=== PATIENT | male | born 1950 | race Caucasian/White ===

== ENCOUNTER 2018-06-04 12:28 | Inpatient (IN) ==
[2018-06-04] MEDS ORDERED: Lidocaine OINT 35.44 GM TUBE TP PRN (16:14)
[2018-06-04] MEDS: Budesonide/Formoterol 80/4.5 MDI IH SCH (21:58)
[2018-06-05] MEDS: Baclofen 10 MG TABLET PO SCH ×4 (00:08→20:54)
[2018-06-05] MEDS: Gabapentin 400 MG CAPSULE PO SCH ×4 (00:08→20:53)
[2018-06-05] MEDS: Metoprolol XL (24 HR) Succ 25 MG TAB.ER.24H PO SCH ×3 (00:08→20:54)
[2018-06-05] MEDS: Thiamine (B-1) 100 MG TABLET PO SCH ×2 (00:11→08:58)
[2018-06-05] MEDS: Acetaminophen 325 MG TABLET PO PRN (08:53)
[2018-06-05] MEDS: Venlafaxine XR (24 HR) 150 MG CAP.ER.24H PO SCH (08:54)
[2018-06-05] MEDS: Aspirin 81 MG TAB.CHEW PO SCH (08:54)
[2018-06-05] MEDS: Cholecalciferol (D-3) 1,000 UNIT TABLET PO SCH (08:55)
[2018-06-05] MEDS: Folic Acid 1 MG TABLET PO SCH (08:55)
[2018-06-05] MEDS: *HR* Rivaroxaban 10 MG TABLET PO SCH (08:55)
[2018-06-05] MEDS: Nicotine 14 MG PATCH.TD24 TD SCH (08:58)
[2018-06-05] MEDS: Budesonide/Formoterol 80/4.5 MDI IH SCH ×2 (10:34→21:29)
--- NOTE | 2018-06-05 12:51 | Internal Med History&Physical ---
Date of Encounter: 06/05/18 Time of Encounter: 11:35 Assessment and Plan (1) CVA (cerebral vascular accident) Current visit: No Status: Acute Continue Xarelto and aspirin. PT and OT evaluation with ongoing intervention will be done. Qualifiers: CVA mechanism: unspecified Qualified Code(s): I63.9 - Cerebral infarction, unspecified (2) Spinal stenosis of lumbar region Current visit: Yes Status: Chronic I have spoken with staff at [facility]. EMG/NCS will be done tomorrow. Repeat LS spine MRI will be ordered Qualifiers: Neurogenic claudication status: unspecified Qualified Code(s): M48.061 - Spinal stenosis, lumbar region without neurogenic claudication (3) HTN (hypertension) Current visit: No Status: Chronic Continue Toprol. Qualifiers: Hypertension type: essential hypertension Qualified Code(s): I10 - Essential (primary) hypertension (4) Anemia Current visit: No Status: Acute Anemia testing will be done in a.m. Qualifiers: Anemia type: unspecified type Qualified Code(s): D64.9 - Anemia, unspecified (5) VTE (venous thromboembolism) Current visit: No Status: Chronic Continue Xarelto. (6) COPD (chronic obstructive pulmonary disease) Current visit: No Status: Chronic Continue Symbicort and prn albuterol. Qualifiers: COPD type: unspecified COPD Qualified Code(s): J44.9 - Chronic obstructive pulmonary disease, unspecified (7) Multiple falls Current visit: No Status: Acute PT and OT evaluations with ongoing intervention will be done. Internal Medicine - H&P: HPI Chief complaint: Stroke Admitted From: Hospital to Hospital Transfer Plans for Post Hospital Care: Home History of present illness: Mr. Morejon is a 68 year old male who was transferred to [facility] swing bed after hospitalization at [facility] May 30-. He was found to have CVA in the left frontal area which appeared to be acute on chronic CVA on brain MRI. He was discharged to swing bed for rehabilitation therapy prior to attempting returned to independent living. He was unaware he had sustained previous CVA. He admits he does not remember many things. He denies seizures or other neurologic disorders. He states he has not been able to walk more than a few steps for approximately one year due to weakness in his legs. Past Med Surg Social Fam HX - Past Medical History Medical history: arthritis, cancer, DVT, hyperlipidemia, hypertension, other Additional medical history: prostrate CA, radioactive seed implants Psychiatric history: no psych history - Past Surgical History Surgical History: other Additional surgical history: Radiation seeds, rt shoulder surgery, R/L hip - Social History Smoking Status: Current every day smoker Packs per day: 1 Smokeless Tobacco Status: No Alcohol use: heavy, recent Drug use: marijuana - Family History Mother Living Status: Hx Family Cardiac Disorders: Yes Hx Family Respiratory Disorders: Yes Hx Family Cancer: Yes (Lung CA) Hx Family GI Disorders: No Hx Family Endocrine Disorder: Yes (DM) Hx Family Neuromuscular Disorders: No Hx Family Neurologic Disorders: Yes (cervical spinal stenosis) Hx Family HEENT Disorders: No Hx Family Autoimmune Disorders: No Father Living Status: Hx Family Cancer: Yes (prostate) Internal Medicine - H&P: Meds Acetaminophen [Tylenol] 650 mg PO Q6HR PRN 08/13/15 [History] Cholecalciferol (D-3) [Vitamin D] 2,000 unit PO DAILY 08/13/15 [History] Gabapentin [Neurontin] 1,200 mg PO TID 08/13/15 [History] Omeprazole [PriLOSEC] 20 mg PO DAILY 08/13/15 [History] Venlafaxine XR (24 HR) [Effexor Xr] 150 mg PO DAILY 08/13/15 [History] Folic Acid 1 mg PO DAILY 02/04/18 [History] Tamsulosin [Flomax] 0.4 mg PO HS 02/04/18 [History] hydrOXYzine HCl [Hydroxyzine HCl] 50 mg PO HS PRN 02/04/18 [History] Metoprolol Succinate [Toprol Xl] 25 mg PO BID 04/07/18 [History] Potassium Chloride [Klor-Con 10] 10 meq PO DAILY 04/07/18 [History] Thiamine HCl [Vitamin B-1] 100 mg PO BID 04/07/18 [History] Lidocaine 1 appl TP QID PRN 04/29/18 [History] Naproxen [Naprosyn] 500 mg PO BID PRN 04/29/18 [History] Rivaroxaban [Xarelto] 20 mg PO DAILY 04/29/18 [History] Budesonide/Formoterol 80/4.5 [Symbicort 80/4.5] 2 puff IH BIDR #1 inhaler 04/30/18 [Rx] Nicotine Patch [Nicoderm] 14 mg TD DAILY #30 patch.td24 04/30/18 [Rx] Albuterol Sulfate [Albuterol Inhaler] 2 puff IH QID PRN 05/30/18 [History] Baclofen 20 mg PO TID 05/30/18 [History] Aspirin 81 mg PO DAILY #30 tab.chew 06/03/18 [Rx] Atorvastatin [Lipitor] 80 mg PO HS #30 tablet 06/03/18 [Rx] Allergy/AdvReac Type Severity Reaction Status Date / Time No Known Allergies Allergy Verified 06/04/18 23:03 All Systems PM: A 10-system review of systems was performed and is negative for pertinent findings except as documented above in the HPI. Review of systems: Gen.: His weight has decreased from 79.7 kg on 05/23/2016 to present weight of 68.045 kg. He states this was unintentional. Cardiovascular: He has history of hypertension. He reports unprovoked right leg DVT in 2018. He is presently on Xarelto. Aspirin was started during his recent [facility] stay for CVA. Echocardiogram 05/30/2018 showed LVEF of 60%. The E/A ratio was 1.3. There was mild mitral regurgitation and moderate tricuspid regurgitation. The interventricular septum and posterior wall thickness measurements were 0.73 and 0.70 cm respectively. Estimated RVSP was not recorded. There is no history of AL. Respiratory: He has smoked since age 16 up to 2 packs per day. He has oxygen at home which he uses only when he feels dyspneic. He denies testing for sleep apnea. GI: He reports occasional diarrhea that has not worsened in the past few months. He states he had a "partial colonoscopy" in 2018 with no worrisome pathology found. He does not recall EGD being done. He denies disorders of his liver gallbladder or exocrine pancreas : He reports being diagnosed with prostate CA 2013 and had brachytherapy. He denies other disorders of his kidney bladder or prostate Neurologic: As per history of present illness Endocrine: He claims history of hyperlipidemia but denies diabetes or thyroid disease Hematology/oncology: He was unaware he had anemia on most labs since August 2015. He denies other internal malignancies other than prostate CA as per above Psychiatric: He denies anxiety depression or other mental health issues [place] skeletal: He had severe multilevel DJD of the lumbar spine with multilevel spinal canal stenosis and bilateral neural foraminal narrowing on LS spine MRI April 2016. He was seen by Dr. Fermin at [facility] and EMG was ordered. The patient canceled the EMG appointment and did not follow-up with Dr. Fermin. He reports ability to ambulate has significantly decreased in the last year. - Constitutional Vitals: Temp Pulse Resp BP Pulse Ox 98.8 F 88 14 136/70 96 06/05/18 06:46 06/05/18 06:46 06/05/18 10:34 06/05/18 06:46 06/05/18 10:34 Exam: Gen.: He is a well-developed well-nourished male resting comfortably in bed who appears in no acute distress HEENT: Head is atraumatic and normocephalic. Eyes: EOMI. There is no scleral icterus. Mouth: Mucosa is moist. Neck: Supple and nontender. There is no thyromegaly or adenopathy noted. Heart: Regular without murmurs gallops or ectopics Lungs: No wheezes or crackles are heard. Abdomen: Soft and nontender. No masses or guarding are noted. Extremities: There is no cyanosis edema or clubbing noted. Dorsalis pedis and posterior tibial pulses are trace palpable bilaterally. Neurologic: Mental status: He is talkative and a good historian. Cranial nerves: Smile is symmetric. Forehead wrinkles bilaterally. Tongue protrudes midline. EOMI. Motor: There is no pronator drift. He has slight weakness on attempting to dorsiflex the left ankle against resistance. The right ankle has normal strength. Cerebellar: Finger to nose is intact bilaterally. Skin: Warm and dry
[2018-06-05] MEDS: hydrOXYzine pamoate 25 MG CAPSULE PO PRN (21:25)
[2018-06-06 06:23] LABS: Basophils # 0.1 K/mcL (0.0-0.2); Basophils % 0.7 %; Eosinophils # 0.6 K/mcL (0.0-0.6); Eosinophils % 4.9 %; Hematocrit 40.1 % (37.5-50.1); Hemoglobin 12.1 g/dL (12.9-16.9); Immature Granulocytes % 1.3 % (0-4); Lymphocytes # 2.2 K/mcL (0.6-4.6); Lymphocytes % 19.3 %; Mean Corpuscular HGB Conc 30.2 g/dL (31.6-35.5); Mean Corpuscular Hemoglobin 27.4 pg (28.0-33.3); Mean Corpuscular Volume 90.7 fL (83.0-100.0); Mean Platelet Volume 9.3 fL (9.4-12.4); Monocytes # 0.7 K/mcL (0.0-1.3); Monocytes % 6.4 %; Neutrophils # 7.8 K/mcL (1.6-8.9); Platelet Count 451 K/mcL (140-400); Red Blood Count 4.42 M/mcL (4.19-5.50); Red Cell Distribution Width 14.3 % (11.5-14.5); Segmented Neutrophils % 67.4 %
[2018-06-06 08:50] LABS: % Iron Saturation 5 % (20-55); Iron 23 mcg/dL (65-175); Transferrin 328 mg/dL (203-362)
[2018-06-06 09:08] LABS: Ferritin 33 ng/mL (20-250)
[2018-06-06 09:13] LABS: Folate 10.7 ng/mL (3.0-16.0)
[2018-06-06] MEDS: Budesonide/Formoterol 80/4.5 MDI IH SCH ×2 (10:15→21:22)
[2018-06-06] MEDS: Metoprolol XL (24 HR) Succ 25 MG TAB.ER.24H PO SCH ×2 (11:13→20:54)
[2018-06-06] MEDS: Folic Acid 1 MG TABLET PO SCH (11:13)
[2018-06-06] MEDS: Aspirin 81 MG TAB.CHEW PO SCH (11:13)
[2018-06-06] MEDS: Cholecalciferol (D-3) 1,000 UNIT TABLET PO SCH (11:13)
[2018-06-06] MEDS: Acetaminophen 325 MG TABLET PO PRN (11:13)
[2018-06-06] MEDS: Venlafaxine XR (24 HR) 150 MG CAP.ER.24H PO SCH (11:13)
[2018-06-06] MEDS: *HR* Rivaroxaban 10 MG TABLET PO SCH (11:13)
[2018-06-06] MEDS: Baclofen 10 MG TABLET PO SCH ×3 (11:13→20:53)
[2018-06-06] MEDS: Nicotine 14 MG PATCH.TD24 TD SCH (11:14)
[2018-06-06] MEDS: Gabapentin 400 MG CAPSULE PO SCH ×3 (11:14→20:54)
--- NOTE | 2018-06-06 17:44 | Internal Med Progress Note ---
Date of Encounter: 06/06/18 Time of Encounter: 17:35 - Assessment and plan (1) CVA (cerebral vascular accident) Current Visit: No Status: Acute Assessment and plan: June 06. Continue Xarelto, aspirin, and PT/OT intervention. Qualifiers: CVA mechanism: unspecified Qualified Code(s): I63.9 - Cerebral infarction, unspecified (2) Spinal stenosis of lumbar region Current Visit: Yes Status: Chronic Assessment and plan: June 06. MRI of LS spine shows diffuse congenital spinal canal stenosis and superimposed degenerative changes with multilevel neural foraminal stenosis and disc bulging. He has a follow-up appointment with Dr. Calvin 06/13/2018 at 0930. EMG/NCS was done today with report pending. Qualifiers: Neurogenic claudication status: unspecified Qualified Code(s): M48.061 - Spinal stenosis, lumbar region without neurogenic claudication (3) HTN (hypertension) Current Visit: No Status: Chronic Assessment and plan: June 06. Continue Toprol. Qualifiers: Hypertension type: essential hypertension Qualified Code(s): I10 - Essential (primary) hypertension (4) Anemia Current Visit: No Status: Acute Assessment and plan: June 06. Anemia testing showed iron 23, transferrin saturation 5%, transferrin 3 and 28, ferritin 33, B12 2066, and folate 10.7. He will start oral ferrous sulfate with ascorbic acid in a.m. MMA will be checked to further evaluate his B12 status. Qualifiers: Anemia type: unspecified type Qualified Code(s): D64.9 - Anemia, unspecified (5) VTE (venous thromboembolism) Current Visit: No Status: Chronic Assessment and plan: June 06. Continue Xarelto (6) COPD (chronic obstructive pulmonary disease) Current Visit: No Status: Chronic Assessment and plan: June 06. Continue Symbicort and prn albuterol. Qualifiers: COPD type: unspecified COPD Qualified Code(s): J44.9 - Chronic obstructive pulmonary disease, unspecified (7) Multiple falls Current Visit: No Status: Acute Assessment and plan: June 06. Continue PT/OT intervention (8) Lung nodule Current Visit: No Status: Acute Assessment and plan: June 06. Chest CT showed left lower lobe nodule measuring approximately 1.5 x 1.38 cm. PET scan recommended for further follow-up. - Subjective Interval history: June 06. He has no new complaints. - Constitutional Vitals: Temp Pulse Resp BP Pulse Ox 98.4 F 90 21 103/71 94 06/06/18 07:02 06/06/18 07:02 06/06/18 07:02 06/06/18 07:02 06/06/18 07:02 Exam: He is resting comfortably in bed and appears in no acute distress. His affect is bright and cheerful. I reviewed his medications, lab results, CT and MRI report. Internal Medicine: Result - Labs CBC & Chem 7: 06/06/18 05:51 Labs: Short CBC 06/06/18 Range/Units 05:51 WBC 11.6 H (4.3-11.1) K/mcL Hgb 12.1 L D (12.9-16.9) g/dL Hct 40.1 (37.5-50.1) % Plt Count 451 H (140-400) K/mcL Neutrophils # 7.8 (1.6-8.9) K/mcL - Impressions Impressions Lumbar Spine MRI 06/05/18 14:47 IMPRESSION: 1. Diffuse congenital spinal canal stenosis. Superimposed degenerative changes further narrow the spinal canal, including severe L3-L4 spinal canal stenosis. Additional multilevel mild spinal canal stenosis, as detailed above. 2. Severe left T11-T12, right L2-L3, right L3-L4, right L4-L5, and left L5-S1 neural foraminal stenosis. 3. Moderate left T12-L1, [id number] left L4-L5, and moderate right L5-S1 neural foraminal stenosis. D/ / 06/05/2018 16:06:22 Nils Crooks MD / [email or web address] Interpreting Provider: Nils Crooks MD Consult Discharge Plan - Plan [facility]Primary Care Provider[facility] - 1 week
[2018-06-06] MEDS: hydrOXYzine pamoate 25 MG CAPSULE PO PRN (20:53)
[2018-06-07] MEDS: Ascorbic Acid 500 MG TABLET PO SCH (06:51)
[2018-06-07] MEDS: Nicotine 14 MG PATCH.TD24 TD SCH (08:32)
[2018-06-07] MEDS: Baclofen 10 MG TABLET PO SCH ×3 (08:32→20:53)
[2018-06-07] MEDS: Cholecalciferol (D-3) 1,000 UNIT TABLET PO SCH (08:34)
[2018-06-07] MEDS: *HR* Rivaroxaban 10 MG TABLET PO SCH (08:34)
[2018-06-07] MEDS: Metoprolol XL (24 HR) Succ 25 MG TAB.ER.24H PO SCH ×2 (08:34→20:53)
[2018-06-07] MEDS: Venlafaxine XR (24 HR) 150 MG CAP.ER.24H PO SCH (08:34)
[2018-06-07] MEDS: Aspirin 81 MG TAB.CHEW PO SCH (08:34)
[2018-06-07] MEDS: Gabapentin 400 MG CAPSULE PO SCH ×3 (08:34→20:53)
[2018-06-07] MEDS: Folic Acid 1 MG TABLET PO SCH (08:34)
[2018-06-07] MEDS: Budesonide/Formoterol 80/4.5 MDI IH SCH ×2 (10:53→22:01)
--- NOTE | 2018-06-07 16:37 | Internal Med Progress Note ---
Date of Encounter: 06/07/18 Time of Encounter: 16:30 - Assessment and plan (1) CVA (cerebral vascular accident) Current Visit: No Status: Acute Assessment and plan: June 06. Continue Xarelto, aspirin, and PT/OT intervention. Qualifiers: CVA mechanism: unspecified Qualified Code(s): I63.9 - Cerebral infarction, unspecified (2) Spinal stenosis of lumbar region Current Visit: Yes Status: Chronic Assessment and plan: June 06. MRI of LS spine shows diffuse congenital spinal canal stenosis and superimposed degenerative changes with multilevel neural foraminal stenosis and disc bulging. He has a follow-up appointment with Dr. Calvin 06/13/2018 at 0930. EMG/NCS was done today with report pending. Qualifiers: Neurogenic claudication status: unspecified Qualified Code(s): M48.061 - Spinal stenosis, lumbar region without neurogenic claudication (3) HTN (hypertension) Current Visit: No Status: Chronic Assessment and plan: June 06. Continue Toprol. Qualifiers: Hypertension type: essential hypertension Qualified Code(s): I10 - Essential (primary) hypertension (4) Anemia Current Visit: No Status: Acute Assessment and plan: June 06. Anemia testing showed iron 23, transferrin saturation 5%, transferrin 3 and 28, ferritin 33, B12 266, and folate 10.7. He will start oral ferrous sulfate with ascorbic acid in a.m. MMA will be checked to further evaluate his B12 status. June 07. MMA pending. Continue ferrous sulfate with ascorbic acid. Qualifiers: Anemia type: unspecified type Qualified Code(s): D64.9 - Anemia, unspecified (5) VTE (venous thromboembolism) Current Visit: No Status: Chronic Assessment and plan: June 06. Continue Xarelto (6) COPD (chronic obstructive pulmonary disease) Current Visit: No Status: Chronic Assessment and plan: June 06. Continue Symbicort and prn albuterol. Qualifiers: COPD type: unspecified COPD Qualified Code(s): J44.9 - Chronic obstructive pulmonary disease, unspecified (7) Multiple falls Current Visit: No Status: Acute Assessment and plan: June 06. Continue PT/OT intervention (8) Lung nodule Current Visit: No Status: Acute Assessment and plan: June 06. Chest CT showed left lower lobe nodule measuring approximately 1.5 x 1.38 cm. PET scan recommended for further follow-up. June 07. PET scan ordered. - Subjective Interval history: June 06. He has no new complaints. June 07. He has no new complaints. He states his walking distance has significantly increased. - Constitutional Vitals: Temp Pulse Resp BP Pulse Ox 98.1 F 81 16 131/74 94 06/07/18 06:29 06/07/18 06:29 06/07/18 10:53 06/07/18 06:06/07/18 10:53 Exam: He is resting comfortably in bed and appears in no acute distress. His affect is bright and cheerful. I reviewed his medications and lab results. Internal Medicine: Result - Labs CBC & Chem 7: 06/06/18 05:51 Consult Discharge Plan - Plan [facility]errals: [facility] [Primary Care Provider[facility] - 1 week
[2018-06-07] MEDS: hydrOXYzine pamoate 25 MG CAPSULE PO PRN (20:52)
[2018-06-08] MEDS: Ascorbic Acid 500 MG TABLET PO SCH (07:24)
[2018-06-08] MEDS: Budesonide/Formoterol 80/4.5 MDI IH SCH ×2 (09:40→23:01)
[2018-06-08] MEDS: Nicotine 14 MG PATCH.TD24 TD SCH (10:16)
[2018-06-08] MEDS: Aspirin 81 MG TAB.CHEW PO SCH (10:18)
[2018-06-08] MEDS: Cholecalciferol (D-3) 1,000 UNIT TABLET PO SCH (10:18)
[2018-06-08] MEDS: Gabapentin 400 MG CAPSULE PO SCH ×3 (10:18→20:04)
[2018-06-08] MEDS: *HR* Rivaroxaban 10 MG TABLET PO SCH (10:18)
[2018-06-08] MEDS: Baclofen 10 MG TABLET PO SCH ×3 (10:18→20:04)
[2018-06-08] MEDS: Metoprolol XL (24 HR) Succ 25 MG TAB.ER.24H PO SCH ×2 (10:18→20:04)
[2018-06-08] MEDS: Folic Acid 1 MG TABLET PO SCH (10:19)
[2018-06-08] MEDS: Venlafaxine XR (24 HR) 150 MG CAP.ER.24H PO SCH (10:19)
[2018-06-09] MEDS: Ascorbic Acid 500 MG TABLET PO SCH (06:16)
[2018-06-09] MEDS: Nicotine 14 MG PATCH.TD24 TD SCH (09:03)
[2018-06-09] MEDS: *HR* Rivaroxaban 10 MG TABLET PO SCH (09:05)
[2018-06-09] MEDS: Gabapentin 400 MG CAPSULE PO SCH ×3 (09:05→20:16)
[2018-06-09] MEDS: Venlafaxine XR (24 HR) 150 MG CAP.ER.24H PO SCH (09:05)
[2018-06-09] MEDS: Cholecalciferol (D-3) 1,000 UNIT TABLET PO SCH (09:05)
[2018-06-09] MEDS: Baclofen 10 MG TABLET PO SCH ×3 (09:05→20:16)
[2018-06-09] MEDS: Metoprolol XL (24 HR) Succ 25 MG TAB.ER.24H PO SCH ×2 (09:05→20:15)
[2018-06-09] MEDS: Folic Acid 1 MG TABLET PO SCH (09:05)
[2018-06-09] MEDS: Aspirin 81 MG TAB.CHEW PO SCH (09:05)
[2018-06-09] MEDS: Budesonide/Formoterol 80/4.5 MDI IH SCH ×2 (10:07→21:53)
--- NOTE | 2018-06-09 14:46 | Internal Med Progress Note ---
Date of Encounter: 06/09/18 Time of Encounter: 14:35 - Assessment and plan (1) CVA (cerebral vascular accident) Current Visit: No Status: Acute Assessment and plan: June 06. Continue Xarelto, aspirin, and PT/OT intervention. Qualifiers: CVA mechanism: unspecified Qualified Code(s): I63.9 - Cerebral infarction, unspecified (2) Spinal stenosis of lumbar region Current Visit: Yes Status: Chronic Assessment and plan: June 06. MRI of LS spine shows diffuse congenital spinal canal stenosis and superimposed degenerative changes with multilevel neural foraminal stenosis and disc bulging. He has a follow-up appointment with Dr. Calvin 06/13/2018 at 0930. EMG/NCS was done today with report pending. Qualifiers: Neurogenic claudication status: unspecified Qualified Code(s): M48.061 - Spinal stenosis, lumbar region without neurogenic claudication (3) HTN (hypertension) Current Visit: No Status: Chronic Assessment and plan: June 06. Continue Toprol. Qualifiers: Hypertension type: essential hypertension Qualified Code(s): I10 - Essential (primary) hypertension (4) Anemia Current Visit: No Status: Acute Assessment and plan: June 06. Anemia testing showed iron 23, transferrin saturation 5%, transferrin 3 and 28, ferritin 33, B12 266, and folate 10.7. He will start oral ferrous sulfate with ascorbic acid in a.m. MMA will be checked to further evaluate his B12 status. June 07. MMA pending. Continue ferrous sulfate with ascorbic acid. Qualifiers: Anemia type: unspecified type Qualified Code(s): D64.9 - Anemia, unspecified (5) VTE (venous thromboembolism) Current Visit: No Status: Chronic Assessment and plan: June 06. Continue Xarelto (6) COPD (chronic obstructive pulmonary disease) Current Visit: No Status: Chronic Assessment and plan: June 06. Continue Symbicort and prn albuterol. Qualifiers: COPD type: unspecified COPD Qualified Code(s): J44.9 - Chronic obstructive pulmonary disease, unspecified (7) Multiple falls Current Visit: No Status: Acute Assessment and plan: June 06. Continue PT/OT intervention (8) Lung nodule Current Visit: No Status: Acute Assessment and plan: June 06. Chest CT showed left lower lobe nodule measuring approximately 1.5 x 1.38 cm. PET scan recommended for further follow-up. June 07. PET scan ordered. - Subjective Interval history: June 06. He has no new complaints. June 07. He has no new complaints. He states his walking distance has significantly increased. June 09. He has no new complaints. He denies pain or dyspnea. - Constitutional Vitals: Temp Pulse Resp BP Pulse Ox 98.4 F 96 14 111/74 93 06/09/18 07:04 06/09/18 07:04 06/09/18 10:07 06/09/18 07:04 06/09/18 10:07 Exam: He is resting comfortably in bed and appears in no acute distress. His affect is overall cheerful. I reviewed his medications and lab results. Internal Medicine: Result - Labs CBC & Chem 7: 06/06/18 05:51 Consult Discharge Plan - Plan [facility]errals: [facility] [Primary Care Provider[facility] - 1 week
[2018-06-10] MEDS: Ascorbic Acid 500 MG TABLET PO SCH (05:52)
[2018-06-10] MEDS: Acetaminophen 325 MG TABLET PO PRN (08:24)
[2018-06-10] MEDS: Nicotine 14 MG PATCH.TD24 TD SCH (08:24)
[2018-06-10] MEDS: Cholecalciferol (D-3) 1,000 UNIT TABLET PO SCH (08:24)
[2018-06-10] MEDS: Venlafaxine XR (24 HR) 150 MG CAP.ER.24H PO SCH (08:25)
[2018-06-10] MEDS: Metoprolol XL (24 HR) Succ 25 MG TAB.ER.24H PO SCH ×2 (08:25→21:00)
[2018-06-10] MEDS: *HR* Rivaroxaban 10 MG TABLET PO SCH (08:25)
[2018-06-10] MEDS: Folic Acid 1 MG TABLET PO SCH (08:25)
[2018-06-10] MEDS: Gabapentin 400 MG CAPSULE PO SCH ×3 (08:25→20:59)
[2018-06-10] MEDS: Baclofen 10 MG TABLET PO SCH ×3 (08:25→20:59)
[2018-06-10] MEDS: Aspirin 81 MG TAB.CHEW PO SCH (08:25)
[2018-06-10] MEDS: Budesonide/Formoterol 80/4.5 MDI IH SCH ×2 (10:42→22:41)
[2018-06-10] MEDS: hydrOXYzine pamoate 25 MG CAPSULE PO PRN (21:00)
[2018-06-11] MEDS: Ascorbic Acid 500 MG TABLET PO SCH (06:44)
[2018-06-11] MEDS: *HR* Rivaroxaban 10 MG TABLET PO SCH (08:47)
[2018-06-11] MEDS: Cholecalciferol (D-3) 1,000 UNIT TABLET PO SCH (08:47)
[2018-06-11] MEDS: Gabapentin 400 MG CAPSULE PO SCH ×3 (08:48→20:06)
[2018-06-11] MEDS: Folic Acid 1 MG TABLET PO SCH (08:48)
[2018-06-11] MEDS: Baclofen 10 MG TABLET PO SCH ×3 (08:48→20:06)
[2018-06-11] MEDS: Metoprolol XL (24 HR) Succ 25 MG TAB.ER.24H PO SCH ×2 (08:48→20:06)
[2018-06-11] MEDS: Venlafaxine XR (24 HR) 150 MG CAP.ER.24H PO SCH (08:48)
[2018-06-11] MEDS: Nicotine 14 MG PATCH.TD24 TD SCH (08:48)
[2018-06-11] MEDS: Aspirin 81 MG TAB.CHEW PO SCH (08:48)
[2018-06-11] MEDS: Budesonide/Formoterol 80/4.5 MDI IH SCH ×2 (10:34→22:20)
[2018-06-12] MEDS: Ascorbic Acid 500 MG TABLET PO SCH (06:06)
[2018-06-12] MEDS: Budesonide/Formoterol 80/4.5 MDI IH SCH ×2 (10:16→22:09)
[2018-06-12] MEDS: Folic Acid 1 MG TABLET PO SCH (10:43)
[2018-06-12] MEDS: Baclofen 10 MG TABLET PO SCH ×3 (10:43→20:07)
[2018-06-12] MEDS: Cholecalciferol (D-3) 1,000 UNIT TABLET PO SCH (10:43)
[2018-06-12] MEDS: Nicotine 14 MG PATCH.TD24 TD SCH (10:43)
[2018-06-12] MEDS: Aspirin 81 MG TAB.CHEW PO SCH (10:44)
[2018-06-12] MEDS: Gabapentin 400 MG CAPSULE PO SCH ×3 (10:44→20:07)
[2018-06-12] MEDS: Venlafaxine XR (24 HR) 150 MG CAP.ER.24H PO SCH (10:44)
[2018-06-12] MEDS: *HR* Rivaroxaban 10 MG TABLET PO SCH (10:44)
[2018-06-12] MEDS: Metoprolol XL (24 HR) Succ 25 MG TAB.ER.24H PO SCH ×2 (12:34→20:07)
--- NOTE | 2018-06-12 12:47 | Internal Med Progress Note ---
Date of Encounter: 06/12/18 Time of Encounter: 12:38 - Assessment and plan (1) CVA (cerebral vascular accident) Current Visit: No Status: Acute Assessment and plan: June 06. Continue Xarelto, aspirin, and PT/OT intervention. June 12. Continue present Rx. Recheck labs in a.m. Qualifiers: CVA mechanism: unspecified Qualified Code(s): I63.9 - Cerebral infarction, unspecified (2) Spinal stenosis of lumbar region Current Visit: Yes Status: Chronic Assessment and plan: June 06. MRI of LS spine shows diffuse congenital spinal canal stenosis and superimposed degenerative changes with multilevel neural foraminal stenosis and disc bulging. He has a follow-up appointment with Dr. Calvin 06/13/2018 at 0930. EMG/NCS was done today with report pending. Qualifiers: Neurogenic claudication status: unspecified Qualified Code(s): M48.061 - Spinal stenosis, lumbar region without neurogenic claudication (3) HTN (hypertension) Current Visit: No Status: Chronic Assessment and plan: June 06. Continue Toprol. Qualifiers: Hypertension type: essential hypertension Qualified Code(s): I10 - Essential (primary) hypertension (4) Anemia Current Visit: No Status: Acute Assessment and plan: June 06. Anemia testing showed iron 23, transferrin saturation 5%, transferrin 3 and 28, ferritin 33, B12 266, and folate 10.7. He will start oral ferrous sulfate with ascorbic acid in a.m. MMA will be checked to further evaluate his B12 status. June 07. MMA pending. Continue ferrous sulfate with ascorbic acid. June 12. MMA normal. Continue ferrous sulfate with ascorbic acid. Recheck labs in a.m. Qualifiers: Anemia type: unspecified type Qualified Code(s): D64.9 - Anemia, unspecified (5) VTE (venous thromboembolism) Current Visit: No Status: Chronic Assessment and plan: June 06. Continue Xarelto (6) COPD (chronic obstructive pulmonary disease) Current Visit: No Status: Chronic Assessment and plan: June 06. Continue Symbicort and prn albuterol. Qualifiers: COPD type: unspecified COPD Qualified Code(s): J44.9 - Chronic obstructive pulmonary disease, unspecified (7) Multiple falls Current Visit: No Status: Acute Assessment and plan: June 06. Continue PT/OT intervention (8) Lung nodule Current Visit: No Status: Acute Assessment and plan: June 06. Chest CT showed left lower lobe nodule measuring approximately 1.5 x 1.38 cm. PET scan recommended for further follow-up. June 07. PET scan ordered. (9) Low zinc level Current Visit: Yes Status: Acute Assessment and plan: June 12. Zinc level returned low at 51. Order zinc sulfate. - Subjective Interval history: June 06. He has no new complaints. June 07. He has no new complaints. He states his walking distance has significantly increased. June 09. He has no new complaints. He denies pain or dyspnea. June 12. He has no new complaints. He is pleased with his progress in therapy and states he feels significantly stronger. - Constitutional Vitals: Temp Pulse Resp BP Pulse Ox 97.5 F L 96 18 89/57 94 06/12/18 10:49 06/12/18 10:49 06/12/18 10:49 06/12/18 10:49 06/12/18 10:49 Exam: He is resting comfortably sitting on the side of bed eating lunch. His affect is bright and cheerful. I reviewed his medications and lab results. Internal Medicine: Result - Labs CBC & Chem 7: 06/06/18 05:51 Consult Discharge Plan - Plan [facility]errals: [facility] [Primary Care Provider] - 1 week
[2018-06-13] MEDS: Ascorbic Acid 500 MG TABLET PO SCH (05:26)
[2018-06-13 05:37] LABS: Basophils # 0.1 K/mcL (0.0-0.2); Basophils % 0.7 %; Eosinophils # 0.4 K/mcL (0.0-0.6); Eosinophils % 3.8 %; Hematocrit 30.8 % (37.5-50.1); Hemoglobin 9.5 g/dL (12.9-16.9); Immature Granulocytes % 0.5 % (0-4); Lymphocytes # 2.3 K/mcL (0.6-4.6); Lymphocytes % 21.7 %; Mean Corpuscular HGB Conc 30.8 g/dL (31.6-35.5); Mean Corpuscular Hemoglobin 27.4 pg (28.0-33.3); Mean Corpuscular Volume 88.8 fL (83.0-100.0); Mean Platelet Volume 8.7 fL (9.4-12.4); Monocytes # 0.7 K/mcL (0.0-1.3); Monocytes % 6.8 %; Neutrophils # 7.1 K/mcL (1.6-8.9); Platelet Count 348 K/mcL (140-400); Red Blood Count 3.47 M/mcL (4.19-5.50); Red Cell Distribution Width 14.9 % (11.5-14.5); Segmented Neutrophils % 66.5 %
[2018-06-13 05:59] LABS: Alanine Aminotransferase 13 Units/L (7-52); Albumin 3.1 g/dL (3.5-5.7); Alkaline Phosphatase 62 Units/L (34-104); Aspartate Amino Transferase 15 Units/L (13-39); BUN/Creatinine Ratio 13 (6-26); Bilirubin,Total 0.3 mg/dL (0.3-1.0); Blood Urea Nitrogen 11 mg/dL (8-23); Calcium 9.1 mg/dL (8.6-10.3); Carbon Dioxide 29 mEq/L (23-29); Chloride 105 mEq/L (98-107); Globulin 3.2 g/dL (2.4-3.5); Glucose 112 mg/dL (70-105); Osmolality,Calculated 288 (280-300); Potassium 4.3 mEq/L (3.5-5.1); Sodium 139 mEq/L (136-145); Total Protein 6.3 g/dL (6.4-8.9); eGFR For Non-African Americans > 60 (> 60)
[2018-06-13] MEDS: Nicotine 14 MG PATCH.TD24 TD SCH (08:19)
[2018-06-13] MEDS: Folic Acid 1 MG TABLET PO SCH (08:19)
[2018-06-13] MEDS: Baclofen 10 MG TABLET PO SCH ×3 (08:20→21:31)
[2018-06-13] MEDS: Gabapentin 400 MG CAPSULE PO SCH ×3 (08:20→21:30)
[2018-06-13] MEDS: Zinc Sulfate 220 MG CAPSULE PO SCH (08:20)
[2018-06-13] MEDS: Venlafaxine XR (24 HR) 150 MG CAP.ER.24H PO SCH (08:20)
[2018-06-13] MEDS: Metoprolol XL (24 HR) Succ 25 MG TAB.ER.24H PO SCH ×2 (08:20→21:31)
[2018-06-13] MEDS: Cholecalciferol (D-3) 1,000 UNIT TABLET PO SCH (08:20)
[2018-06-13] MEDS: *HR* Rivaroxaban 10 MG TABLET PO SCH (08:20)
[2018-06-13] MEDS: Aspirin 81 MG TAB.CHEW PO SCH (08:21)
[2018-06-13] MEDS: Budesonide/Formoterol 80/4.5 MDI IH SCH ×2 (09:10→22:54)
--- NOTE | 2018-06-13 14:30 | Internal Med Progress Note ---
Date of Encounter: 06/13/18 Time of Encounter: 14:20 - Assessment and plan (1) CVA (cerebral vascular accident) Current Visit: No Status: Acute Assessment and plan: June 06. Continue Xarelto, aspirin, and PT/OT intervention. June 12. Continue present Rx. Recheck labs in a.m. June 13. Discontinue aspirin due to decreased hemoglobin. He is uncertain why [facility]. Qualifiers: CVA mechanism: unspecified Qualified Code(s): I63.9 - Cerebral infarction, unspecified (2) Spinal stenosis of lumbar region Current Visit: Yes Status: Chronic Assessment and plan: June 06. MRI of LS spine shows diffuse congenital spinal canal stenosis and superimposed degenerative changes with multilevel neural foraminal stenosis and disc bulging. He has a follow-up appointment with Dr. Calvin 06/13/2018 at 0930. EMG/NCS was done today with report pending. June 13. He will have a follow-up appointment with Dr. Churchill at [facility] on June 27. Qualifiers: Neurogenic claudication status: unspecified Qualified Code(s): M48.061 - Spinal stenosis, lumbar region without neurogenic claudication (3) HTN (hypertension) Current Visit: No Status: Chronic Assessment and plan: June 06. Continue Toprol. Qualifiers: Hypertension type: essential hypertension Qualified Code(s): I10 - Essential (primary) hypertension (4) Anemia Current Visit: No Status: Acute Assessment and plan: June 06. Anemia testing showed iron 23, transferrin saturation 5%, transferrin 3 and 28, ferritin 33, B12 266, and folate 10.7. He will start oral ferrous sulfate with ascorbic acid in a.m. MMA will be checked to further evaluate his B12 status. June 07. MMA pending. Continue ferrous sulfate with ascorbic acid. June 12. MMA normal. Continue ferrous sulfate with ascorbic acid. Recheck labs in a.m. June 2. Hemoglobin has decreased to 9.5. Will discontinue aspirin. Continue ferrous sulfate with ascorbic acid. Qualifiers: Anemia type: unspecified type Qualified Code(s): D64.9 - Anemia, unspecified (5) VTE (venous thromboembolism) Current Visit: No Status: Chronic Assessment and plan: June 06. Continue Xarelto (6) COPD (chronic obstructive pulmonary disease) Current Visit: No Status: Chronic Assessment and plan: June 06. Continue Symbicort and prn albuterol. Qualifiers: COPD type: unspecified COPD Qualified Code(s): J44.9 - Chronic obstructive pulmonary disease, unspecified (7) Multiple falls Current Visit: No Status: Acute Assessment and plan: June 06. Continue PT/OT intervention (8) Lung nodule Current Visit: No Status: Acute Assessment and plan: June 06. Chest CT showed left lower lobe nodule measuring approximately 1.5 x 1.38 cm. PET scan recommended for further follow-up. June 07. PET scan ordered. June 13. PET scan must be done as an outpatient. I told him his PCP at [facility] can coordinate this. (9) Low zinc level Current Visit: Yes Status: Acute Assessment and plan: June 12. Zinc level returned low at 51. Order zinc sulfate. - Subjective Interval history: June 06. He has no new complaints. June 07. He has no new complaints. He states his walking distance has significantly increased. June 09. He has no new complaints. He denies pain or dyspnea. June 12. He has no new complaints. He is pleased with his progress in therapy and states he feels significantly stronger. June 13. He has noticed dysphagia with sensation of "food sticking" in his lower esophagus/epigastric area since eating roast beef earlier in the week. He has had no similar sensation when drinking water. He denies abdominal pain otherwise. He states he feels he has improved enough in therapy to be discharged home tomorrow. - Constitutional Vitals: Temp Pulse Resp BP Pulse Ox 98.1 F 97 18 100/65 92 06/13/18 06:46 06/13/18 06:46 06/13/18 06:46 06/13/18 06:46 06/13/18 06:46 Exam: He is sitting on the side of bed and appears comfortable. His affect is bright and cheerful. I reviewed his medications and lab results. I reviewed the report from Dr. Calvin discussing his MRI and EMG results and plan of care. Internal Medicine: Result - Labs CBC & Chem 7: 06/13/18 05:23 06/13/18 05:23 Labs: Short CBC 06/13/18 Range/Units 05:23 WBC 10.6 (4.3-11.1) K/mcL Hgb 9.5 L D (12.9-16.9) g/dL Hct 30.8 L (37.5-50.1) % Plt Count 348 (140-400) K/mcL Neutrophils # 7.1 (1.6-8.9) K/mcL BMP 06/13/18 05:23 Sodium 139 Potassium 4.3 Chloride 105 Carbon Dioxide 29 BUN 11 Creatinine 0.85 Glucose 112 H Calcium 9.1 Liver Function 06/13/18 Range/Units 05:23 Total Bilirubin 0.3 (0.3-1.0) mg/dL AST 15 (13-39) Units/L ALT 13 (7-52) Units/L Alkaline Phosphatase 62 (34-104) Units/L Albumin 3.1 L (3.5-5.7) g/dL Consult Discharge Plan - Plan [facility]errals: [facility]Primary Care Provider[facility] - 1 week
[2018-06-14] MEDS: Ascorbic Acid 500 MG TABLET PO SCH (05:38)
[2018-06-14] MEDS: Gabapentin 400 MG CAPSULE PO SCH ×3 (09:04→20:34)
[2018-06-14] MEDS: Aspirin 81 MG TAB.CHEW PO SCH (09:04)
[2018-06-14] MEDS: Baclofen 10 MG TABLET PO SCH ×3 (09:04→20:34)
[2018-06-14] MEDS: Venlafaxine XR (24 HR) 150 MG CAP.ER.24H PO SCH (09:04)
[2018-06-14] MEDS: Cholecalciferol (D-3) 1,000 UNIT TABLET PO SCH (09:04)
[2018-06-14] MEDS: Folic Acid 1 MG TABLET PO SCH (09:04)
[2018-06-14] MEDS: *HR* Rivaroxaban 10 MG TABLET PO SCH (09:04)
[2018-06-14] MEDS: Zinc Sulfate 220 MG CAPSULE PO SCH (09:04)
[2018-06-14] MEDS: Metoprolol XL (24 HR) Succ 25 MG TAB.ER.24H PO SCH ×2 (09:04→20:34)
[2018-06-14] MEDS: Nicotine 14 MG PATCH.TD24 TD SCH (09:05)
[2018-06-14] MEDS: Budesonide/Formoterol 80/4.5 MDI IH SCH ×2 (10:01→21:48)
--- NOTE | 2018-06-14 10:10 | Internal Med Progress Note ---
Date of Encounter: 06/14/18 Time of Encounter: 10:00 - Assessment and plan (1) CVA (cerebral vascular accident) Current Visit: No Status: Acute Assessment and plan: June 06. Continue Xarelto, aspirin, and PT/OT intervention. June 12. Continue present Rx. Recheck labs in a.m. June 2. Discontinue aspirin due to decreased hemoglobin. He is uncertain why he [facility]. June 3. Remain off aspirin. Continue Xarelto. Qualifiers: CVA mechanism: unspecified Qualified Code(s): I63.9 - Cerebral infarction, unspecified (2) Spinal stenosis of lumbar region Current Visit: Yes Status: Chronic Assessment and plan: June 06. MRI of LS spine shows diffuse congenital spinal canal stenosis and superimposed degenerative changes with multilevel neural foraminal stenosis and disc bulging. He has a follow-up appointment with Dr. Calvin 06/13/2018 at 0930. EMG/NCS was done today with report pending. June 13. He will have a follow-up appointment with Dr. Churchill at [facility] on June 27. Qualifiers: Neurogenic claudication status: unspecified Qualified Code(s): M48.061 - Spinal stenosis, lumbar region without neurogenic claudication (3) HTN (hypertension) Current Visit: No Status: Chronic Assessment and plan: June 06. Continue Toprol. Qualifiers: Hypertension type: essential hypertension Qualified Code(s): I10 - E ssential (primary) hypertension (4) Anemia Current Visit: No Status: Acute Assessment and plan: June 06. Anemia testing showed iron 23, transferrin saturation 5%, transferrin 3 and 28, ferritin 33, B12 266, and folate 10.7. He will start oral ferrous sulfate with ascorbic acid in a.m. MMA will be checked to further evaluate his B12 status. June 07. MMA pending. Continue ferrous sulfate with ascorbic acid. June 12. MMA normal. Continue ferrous sulfate with ascorbic acid. Recheck labs in a.m. June 2. Hemoglobin has decreased to 9.5. Will discontinue aspirin. Continue ferrous sulfate with ascorbic acid. Qualifiers: Anemia type: unspecified type Qualified Code(s): D64.9 - Anemia, unspecified (5) VTE (venous thromboembolism) Current Visit: No Status: Chronic Assessment and plan: June 06. Continue Xarelto (6) COPD (chronic obstructive pulmonary disease) Current Visit: No Status: Chronic Assessment and plan: June 06. Continue Symbicort and prn albuterol. Qualifiers: COPD type: unspecified COPD Qualified Code(s): J44.9 - Chronic obstructive pulmonary disease, unspecified (7) Multiple falls Current Visit: No Status: Acute Assessment and plan: June 06. Continue PT/OT intervention June 14. His strength, balance, and stamina have improved significantly. Continue therapy. (8) Lung nodule Current Visit: No Status: Acute Assessment and plan: June 06. Chest CT showed left lower lobe nodule measuring approximately 1.5 x 1.38 cm. PET scan recommended for further follow-up. June 07. PET scan ordered. June 13. PET scan must be done as an outpatient. I told him his PCP at [place] can coordinate this. (9) Low zinc level Current Visit: Yes Status: Acute Assessment and plan: June 12. Zinc level returned low at 51. Order zinc sulfate. - Subjective Interval history: June 06. He has no new complaints. June 07. He has no new complaints. He states his walking distance has significantly increased. June 09. He has no new complaints. He denies pain or dyspnea. June 12. He has no new complaints. He is pleased with his progress in therapy and states he feels significantly stronger. June 13. He has noticed dysphagia with sensation of "food sticking" in his lower esophagus/epigastric area since eating roast beef earlier in the week. He has had no similar sensation when drinking water. He denies abdominal pain otherwise. He states he feels he has improved enough in therapy to be discharged home tomorrow. June 14. He has no new complaints. He feels now he should wait until tomorrow to go home after having additional therapy and finalizing arrangements for DME/wheeled walker. - Constitutional Vitals: Temp Pulse Resp BP Pulse Ox 98.1 F 100 18 118/73 97 06/14/18 06:56 06/14/18 06:56 06/14/18 10:02 06/14/18 06:56 06/14/18 10:02 Exam: He is resting comfortably in bed and appears in no acute distress. He is appropriate in conversation and does not appear in pain. I reviewed his medications and lab results. Internal Medicine: Result - Labs CBC & Chem 7: 06/13/18 05:23 06/13/18 05:23 Consult Discharge Plan - Plan [facility]errals: [facility] [Primary Care Provider[facility] - 1 week
--- NOTE | 2018-06-14 11:02 | Physician Discharge Referral ---
Home Health/Hosp Referral Info Transfer to: Home Health Attending Provider: Jairon Provider in Charge Post Discharge: PCP ([facility]) - Diagnosis (1) CVA (cerebral vascular accident) Priority: Primary Status: Acute (2) Spinal stenosis of lumbar region Priority: Secondary Status: Chronic (3) HTN (hypertension) Priority: Secondary Status: Chronic (4) Anemia Priority: Secondary Status: Acute (5) VTE (venous thromboembolism) Priority: Secondary Status: Chronic (6) COPD (chronic obstructive pulmonary disease) Priority: Secondary Status: Chronic (7) Multiple falls Priority: Secondary Status: Acute (8) Lung nodule Priority: Secondary Status: Acute (9) Low zinc level Priority: Secondary Status: Acute - Respiratory Orders Oxygen / L per min (2 L/m by nasal cannula) Smoking Cessation: Smoking cessation has been advised. For more information, call the [place] Tobacco Quit Line at 1-632-VGPI-NOW. - Diet/Nutrition Diet/Nutrition Orders: Regular - Activity Activity Orders: Walker - Services Needed Following services are medically necessary services: Nursing, Home Health Aide, Physical Therapy, Occupational Therapy - Transfer Medications Home Medications: Acetaminophen [Tylenol] 650 mg PO Q6HR PRN 08/13/15 [History] Cholecalciferol (D-3) [Vitamin D] 2,000 unit PO DAILY 08/13/15 [History] Gabapentin [Neurontin] 1,200 mg PO TID 08/13/15 [History] Omeprazole [PriLOSEC] 20 mg PO DAILY 08/13/15 [History] Venlafaxine XR (24 HR) [Effexor Xr] 150 mg PO DAILY 08/13/15 [History] Folic Acid 1 mg PO DAILY 02/04/18 [History] Tamsulosin [Flomax] 0.4 mg PO HS 02/04/18 [History] hydrOXYzine HCl [Hydroxyzine HCl] 50 mg PO HS PRN 02/04/18 [History] Metoprolol Succinate [Toprol Xl] 25 mg PO BID 04/07/18 [History] Lidocaine 1 appl TP QID PRN 04/29/18 [History] Rivaroxaban [Xarelto] 20 mg PO DAILY 04/29/18 [History] Budesonide/Formoterol 80/4.5 [Symbicort 80/4.5] 2 puff IH BIDR #1 inhaler 04/30/18 [Rx] Nicotine Patch [Nicoderm] 14 mg TD DAILY #30 patch.td24 04/30/18 [Rx] Albuterol Sulfate [Albuterol Inhaler] 2 puff IH QID PRN 05/30/18 [History] Baclofen 20 mg PO TID 05/30/18 [History] Atorvastatin [Lipitor] 80 mg PO HS #30 tablet 06/03/18 [Rx] Ascorbic Acid [Vitamin C] 500 mg PO 0630 tablet 06/14/18 [Rx] Ferrous Sulfate 325 mg PO 0630 tablet 06/14/18 [Rx] Zinc Sulfate 220 mg PO DAILY capsule 06/14/18 [Rx] Allergies/Adverse Reactions: Allergy/AdvReac Type Severity Reaction Status Date / Time No Known Allergies Allergy Verified 06/04/18 23:03 Certification: Further, I certify that my clinical findings support that this patient is homebound (i.e. absences from home require considerable and taxing effort and are for medical reasons or alevism services or infrequently or short duration when for other reasons) because: Homebound Reason: Leaving home requires considerable and taxing effort due to condition (COPD, impaired walking ability with spinal stenosis.) Attestation: My signature below is to certify that this patient is under my care and that I, or nurse practitioner, or a physician's contract administrative assistant working with me, has a [id number] encounter with this patient.
[2018-06-15] MEDS: Ascorbic Acid 500 MG TABLET PO SCH (06:33)
[2018-06-15 07:09] VITALS: BP 109/71
[2018-06-15] MEDS: Zinc Sulfate 220 MG CAPSULE PO SCH (08:54)
[2018-06-15] MEDS: Cholecalciferol (D-3) 1,000 UNIT TABLET PO SCH (08:55)
[2018-06-15] MEDS: *HR* Rivaroxaban 10 MG TABLET PO SCH (08:55)
[2018-06-15] MEDS: Gabapentin 400 MG CAPSULE PO SCH ×2 (08:55→14:26)
[2018-06-15] MEDS: Venlafaxine XR (24 HR) 150 MG CAP.ER.24H PO SCH (08:55)
[2018-06-15] MEDS: Metoprolol XL (24 HR) Succ 25 MG TAB.ER.24H PO SCH (08:55)
[2018-06-15] MEDS: Baclofen 10 MG TABLET PO SCH ×2 (08:55→14:26)
[2018-06-15] MEDS: Folic Acid 1 MG TABLET PO SCH (08:55)
[2018-06-15] MEDS: Nicotine 14 MG PATCH.TD24 TD SCH (08:59)
[2018-06-15] MEDS: Budesonide/Formoterol 80/4.5 MDI IH SCH (09:31)
[2018-06-15 12:03] LABS: Basophils # 0.1 K/mcL (0.0-0.2); Basophils % 0.5 %; Eosinophils # 0.3 K/mcL (0.0-0.6); Eosinophils % 2.7 %; Hematocrit 34.9 % (37.5-50.1); Hemoglobin 10.7 g/dL (12.9-16.9); Immature Granulocytes % 0.5 % (0-4); Lymphocytes # 1.5 K/mcL (0.6-4.6); Lymphocytes % 11.5 %; Mean Corpuscular HGB Conc 30.7 g/dL (31.6-35.5); Mean Corpuscular Hemoglobin 27.6 pg (28.0-33.3); Mean Corpuscular Volume 90.2 fL (83.0-100.0); Monocytes # 0.9 K/mcL (0.0-1.3); Monocytes % 7.1 %; Platelet Count 350 K/mcL (140-400); Red Blood Count 3.87 M/mcL (4.19-5.50); Red Cell Distribution Width 15.2 % (11.5-14.5); Segmented Neutrophils % 77.7 %
[2018-06-15 12:04] LABS: Neutrophils # 9.9 K/mcL (1.6-8.9)
--- NOTE | 2018-06-15 14:45 | Discharge Summary ---
Orders not resulted at time of discharge: Pending orders 06/06/18 17:[address] whole body DX/initial [PE] Routine Date of Encounter: 06/15/18 Time of Encounter: 14:20 - Discharge Diagnosis (1) CVA (cerebral vascular accident) Priority: Primary Status: Acute Qualifiers: CVA mechanism: unspecified Qualified Code(s): I63.9 - Cerebral infarction, unspecified (2) Esophageal obstruction Priority: Secondary Status: Acute (3) Spinal stenosis of lumbar region Priority: Secondary Status: Chronic Qualifiers: Neurogenic claudication status: unspecified Qualified Code(s): M48.061 - Spinal stenosis, lumbar region without neurogenic claudication (4) HTN (hypertension) Priority: Secondary Status: Chronic Qualifiers: Hypertension type: essential hypertension Qualified Code(s): I10 - Essential (primary) hypertension (5) Anemia Priority: Secondary Status: Acute Qualifiers: Anemia type: unspecified type Qualified Code(s): D64.9 - Anemia, unspecified (6) VTE (venous thromboembolism) Priority: Secondary Status: Chronic (7) COPD (chronic obstructive pulmonary disease) Priority: Secondary Status: Chronic Qualifiers: COPD type: unspecified COPD Qualified Code(s): J44.9 - Chronic obstructive pulmonary disease, unspecified (8) Multiple falls Priority: Secondary Status: Acute (9) Lung nodule Priority: Secondary Status: Acute (10) Low zinc level Priority: Secondary Status: Acute Hospital course: Mr. Morejon is a 68 year old male who was transferred to [facility] swing bed after hospitalization at [facility] May 30-. He was found to have CVA in the left frontal area which appeared to be acute on chronic CVA on brain MRI. He was discharged to swing bed for rehabilitation therapy prior to attempting returned to independent living. Initial orders were written by the discharging physicians at [facility]. I saw him June 05 and performed a swing bed history and physical. He continued on X arelto and aspirin initially with PT and OT evaluation and ongoing intervention. He made significant progress in therapy with marked increase in his ambulation distance ability. Contact was made with Dr. Calvin's office regarding follow-up for known spinal stenosis. Repeat LS-spine MRI was done and showed multilevel significant spinal canal and neural foraminal stenoses. EMG/NCS was done and patient was seen in follow-up by Dr. Calvin who did not feel surgical intervention was needed immediately. A chest CT was done on admission to [facility] to further evaluate his reported 20 pound weight loss and mild anemia. A 1.5 x 1.38 cm left lower lobe nodule was seen with recommendation for PET scan to be done. I told the patient the PET scan could be arranged as an outpatient by his PCP at [place]. Anemia testing showed iron 23, transferrin saturation 5%, transferrin 328, ferritin 33, B12 266, and folate 10.7. He was started on oral ferrous sulfate with ascorbic acid. MMA was checked to further evaluate his B12 status and returned normal at 0.30. Zinc level returned low at 51. He was given zinc sulfate. Hemoglobin decreased to 9.5 on June 13. Aspirin was discontinued and hemoglobin had risen to 10.7 by June 15. On June 13 the patient complained of some dysphasia following ingestion of roast beef at an earlier meal. When I saw him on June 15 he reported no improvement and that he had had intermittent vomiting following food ingestion. He reported water did not cause vomiting. Repeat chest CT was done and showed esophagus mildly patulous and filled with fluid and debris. Recommendation for endoscopy to exclude subtle mass at the GE junction. The previously seen left lower lobe nodule appeared unchanged from previous CT although was now described as "mildly spiculated". Mediastinal lymphadenopathy was noted. I explained to the patient on June 15 that he should be transferred to have EGD and possibly further workup done as needed. I told him I was concerned that he could have malignancy in his esophagus and/or lung. He was accepted and transferred to [facility] the afternoon of 06/15/2018. I explained that PET scan might not be done as an inpatient at [facility] but could be ordered as an outpatient test by his PCP team at [place]. - Time Spent with Patient Total time spent providing and/or coordinating discharge services: - Discharge Medications Prescriptions: New Ascorbic Acid [Vitamin C] 500 mg PO 0630 tablet Ferrous Sulfate 325 mg PO 0630 tablet Zinc Sulfate 220 mg PO DAILY capsule Continued Venlafaxine XR (24 HR) [Effexor Xr] 150 mg PO DAILY Omeprazole [PriLOSEC] 20 mg PO DAILY Cholecalciferol (D-3) [Vitamin D] 2,000 unit PO DAILY Acetaminophen [Tylenol] 650 mg PO Q6HR PRN PRN Reason: Pain Gabapentin [Neurontin] 1,200 mg PO TID Folic Acid 1 mg PO DAILY hydrOXYzine HCl [Hydroxyzine HCl] 50 mg PO HS PRN PRN Reason: Sleep Tamsulosin [Flomax] 0.4 mg PO HS Metoprolol Succinate [Toprol Xl] 25 mg PO BID Lidocaine 1 appl TP QID PRN PRN Reason: Pain Rivaroxaban [Xarelto] 20 mg PO DAILY Budesonide/Formoterol 80/4.5 [Symbicort 80/4.5] 2 puff IH BIDR #1 inhaler Nicotine Patch [Nicoderm] 14 mg TD DAILY #30 patch.td24 Albuterol Sulfate [Albuterol Inhaler] 2 puff IH QID PRN PRN Reason: Shortness Of Breath Baclofen 20 mg PO TID Atorvastatin [Lipitor] 80 mg PO HS #30 tablet Discontinued Potassium Chloride [Klor-Con 10] 10 meq PO DAILY Thiamine HCl [Vitamin B-1] 100 mg PO BID Naproxen [Naprosyn] 500 mg PO BID PRN PRN Reason: Pain Aspirin 81 mg PO DAILY #30 tab.chew Home Medications: Acetaminophen [Tylenol] 650 mg PO Q6HR PRN 08/13/15 [History] Cholecalciferol (D-3) [Vitamin D] 2,000 unit PO DAILY 08/13/15 [History] Gabapentin [Neurontin] 1,200 mg PO TID 08/13/15 [History] Omeprazole [PriLOSEC] 20 mg PO DAILY 08/13/15 [History] Venlafaxine XR (24 HR) [Effexor Xr] 150 mg PO DAILY 08/13/15 [History] Folic Acid 1 mg PO DAILY 02/04/18 [History] Tamsulosin [Flomax] 0.4 mg PO HS 02/04/18 [History] hydrOXYzine HCl [Hydroxyzine HCl] 50 mg PO HS PRN 02/04/18 [History] Metoprolol Succinate [Toprol Xl] 25 mg PO BID 04/07/18 [History] Lidocaine 1 appl TP QID PRN 04/29/18 [History] Rivaroxaban [Xarelto] 20 mg PO DAILY 04/29/18 [History] Budesonide/Formoterol 80/4.5 [Symbicort 80/4.5] 2 puff IH BIDR #1 inhaler 04/30/18 [Rx] Nicotine Patch [Nicoderm] 14 mg TD DAILY #30 patch.td24 04/30/18 [Rx] Albuterol Sulfate [Albuterol Inhaler] 2 puff IH QID PRN 05/30/18 [History] Baclofen 20 mg PO TID 05/30/18 [History] Atorvastatin [Lipitor] 80 mg PO HS #30 tablet 06/03/18 [Rx] Ascorbic Acid [Vitamin C] 500 mg PO 0630 tablet 06/14/18 [Rx] Ferrous Sulfate 325 mg PO 0630 tablet 06/14/18 [Rx] Zinc Sulfate 220 mg PO DAILY capsule 06/14/18 [Rx] Allergies/Adverse Reactions: Allergy/AdvReac Type Severity Reaction Status Date / Time No Known Allergies Allergy Verified 06/04/18 23:03 Date of admission: 06/04/18 18:50 Primary care physician: [facility]CP [facility] Consults: 06/04/18 16:06 Consult to Occupational Therapy [CONS] Routine Comment: eval, develop and implement POC Reason for Consult: eval, develop and implement POC Does patient have active BEDREST order?: No Is patient medically & hemodynamically stable?: Yes Consult to Physical Therapy [CONS] Routine Comment: eval, develop and implement POC Reason for Consult: eval, develop and implement POC Does patient have active BEDREST order?: No Is patient medically & hemodynamically stable?: Yes Consult to [employer] Worker [CONS] Routine Reason for SW Consult: may need HH upon discharge - Constitutional Vitals: Temp Pulse Resp BP Pulse Ox 97.9 F 99 19 109/71 92 06/15/18 06:54 06/15/18 06:54 06/15/18 06:54 06/15/18 06:54 06/15/18 06:54 - Patient Status Disposition: Transfer Other - Discharge Instructions
== END 2018-06-15 17:00 | disposition other institution (70) | DRG 57 ==
LOC: INPPIK 18:50 → UNDODISIN 23:54
PROVIDERS: ADMIT Internal Medicine; ATTEND Internal Medicine

== ENCOUNTER 2018-06-18 15:20 | Inpatient (IN) ==
[2018-06-18] MEDS ORDERED: Lidocaine OINT 35.44 GM TUBE TP PRN (17:26)
[2018-06-18] MEDS ORDERED: Benzonatate 100 MG CAPSULE PO PRN (17:26)
[2018-06-18] MEDS ORDERED: hydrOXYzine pamoate 25 MG CAPSULE PO PRN (17:26)
[2018-06-18] MEDS ORDERED: Acetaminophen 325 MG TABLET PO PRN (17:26)
[2018-06-18] MEDS ORDERED: Baclofen 10 MG TABLET PO PRN (17:26)
[2018-06-18] MEDS: Thiamine (B-1) 100 MG TABLET PO SCH (20:55)
[2018-06-18] MEDS: Gabapentin 400 MG CAPSULE PO SCH (20:56)
[2018-06-18] MEDS: Budesonide/Formoterol 80/4.5 MDI IH SCH (22:39)
[2018-06-19] MEDS: Venlafaxine XR (24 HR) 150 MG CAP.ER.24H PO SCH (09:01)
[2018-06-19] MEDS: Nicotine 14 MG PATCH.TD24 TD SCH (09:02)
[2018-06-19] MEDS: Metoprolol XL (24 HR) Succ 50 MG TAB.ER.24H PO SCH (09:02)
[2018-06-19] MEDS: Cholecalciferol (D-3) 1,000 UNIT TABLET PO SCH (09:02)
[2018-06-19] MEDS: Gabapentin 400 MG CAPSULE PO SCH ×3 (09:02→20:38)
[2018-06-19] MEDS: Folic Acid 1 MG TABLET PO SCH (09:02)
[2018-06-19] MEDS: Budesonide/Formoterol 80/4.5 MDI IH SCH (09:45)
[2018-06-19] MEDS: Thiamine (B-1) 100 MG TABLET PO SCH (11:41)
[2018-06-19] MEDS: *HR* Rivaroxaban 10 MG TABLET PO SCH (16:07)
--- NOTE | 2018-06-19 17:10 | Internal Med History&Physical ---
Date of Encounter: 06/19/18 Time of Encounter: 16:45 Assessment and Plan (1) CVA (cerebral vascular accident) Current visit: No Status: Acute Continue Xarelto and PT/OT. Qualifiers: CVA mechanism: unspecified Qualified Code(s): I63.9 - Cerebral infarction, unspecified (2) Anemia Current visit: No Status: Acute Continue ferrous sulfate with ascorbic acid. Qualifiers: Anemia type: unspecified type Qualified Code(s): D64.9 - Anemia, unspecified (3) VTE (venous thromboembolism) Current visit: No Status: Chronic Continue Xarelto (4) Multiple falls Current visit: No Status: Acute Continue PT/OT. (5) Lung nodule Current visit: No Status: Acute He will have PET/CT scan as outpatient. (6) Spinal stenosis of lumbar region Current visit: No Status: Chronic Nonsurgical treatment at present time. Follow-up with Dr. Calvin/[facility] as directed. Qualifiers: Neurogenic claudication status: unspecified Qualified Code(s): M48.061 - Spinal stenosis, lumbar region without neurogenic claudication (7) Low zinc level Current visit: No Status: Acute Zinc level returned low at 51. Continue zinc sulfate. Internal Medicine - H&P: HPI Chief complaint: CVA, spinal stenosis Admitted From: Hospital to Hospital Transfer Plans for Post Hospital Care: Home History of present illness: Mr. Morejon is a 68 year old male who returned to [facility] swing bed after a June 15 stay at [facility] for esophageal obstruction from lodged food bolus. EGD was done and the obstruction was removed. Consideration for esophageal dilatation as outpatient was mentioned. His diet was changed to mechanical soft. He had been at [facility] swing bed June 05-June 15 following acute-care stay at [facility] May 30 for acute on chronic CVA. Past Med Surg Social Fam HX - Past Medical History Medical history: arthritis, cancer, DVT, hyperlipidemia, hypertension, other Additional medical history: prostate CA, radioactive seed implants Psychiatric history: no psych history - Past Surgical History Surgical History: other Additional surgical history: Radiation seeds, rt shoulder surgery, R/L hip - Social History Smoking Status: Current every day smoker Smokeless Tobacco Status: No Alcohol use: heavy Drug use: marijuana - Family History Mother Living Status: Hx Family Cardiac Disorders: Yes Hx Family Respiratory Disorders: Yes Hx Family Cancer: Yes Hx Family GI Disorders: No Hx Family Endocrine Disorder: Yes (DM) Hx Family Neuromuscular Disorders: No Hx Family Neurologic Disorders: Yes (cervical spinal stenosis) Hx Family HEENT Disorders: No Hx Family Autoimmune Disorders: No Father Living Status: Hx Family Cancer: Yes (prostate) Internal Medicine - H&P: Meds Acetaminophen [Tylenol] 650 mg PO Q6HR PRN 08/13/15 [History] Cholecalciferol (D-3) [Vitamin D] 2,000 unit PO DAILY 08/13/15 [History] Gabapentin [Neurontin] 1,200 mg PO TID 08/13/15 [History] Omeprazole [PriLOSEC] 20 mg PO DAILY 08/13/15 [History] Venlafaxine XR (24 HR) [Effexor Xr] 150 mg PO DAILY 08/13/15 [History] Folic Acid 1 mg PO DAILY 02/04/18 [History] Tamsulosin [Flomax] 0.4 mg PO HS 02/04/18 [History] hydrOXYzine HCl [Hydroxyzine HCl] 50 mg PO HS PRN 02/04/18 [History] Lidocaine 1 appl TP QID PRN 04/29/18 [History] Rivaroxaban [Xarelto] 20 mg PO DAILY 04/29/18 [History] Budesonide/Formoterol 80/4.5 [Symbicort 80/4.5] 2 puff IH BIDR #1 inhaler 04/30/18 [Rx] Albuterol Sulfate [Albuterol Inhaler] 2 puff IH QID PRN 05/30/18 [History] Baclofen 20 mg PO TID PRN 05/30/18 [History] Atorvastatin [Lipitor] 80 mg PO HS #30 tablet 06/03/18 [Rx] Benzonatate [Tessalon] 100 mg PO TID PRN 06/16/18 [History] Naproxen [Naprosyn] 500 mg PO BID PRN 06/16/18 [History] Potassium Chloride [K-Tab ER] 10 meq PO DAILY 06/16/18 [History] Thiamine HCl [Vitamin B-1] 100 mg PO BID 06/16/18 [History] Metoprolol XL (24 HR) Succ [Toprol Xl] 75 mg PO DAILY #30 tab.er.24h 06/17/18 [Rx] Nicotine Patch [Nicoderm] 14 mg TD DAILY patch.td24 06/17/18 [Rx] Tamsulosin [Flomax] 0.4 mg PO HS capsule 06/17/18 [Rx] Allergy/AdvReac Type Severity Reaction Status Date / Time No Known Allergies Allergy Verified 06/16/18 14:23 All Systems PM: A 10-system review of systems was performed and is negative for pertinent findings except as documented above in the HPI. Review of systems: Review of systems from his May 2018 [facility] hospitalization were reviewed and revised as below. Gen.: His weight has decreased from 79.7 kg on 05/23/2016 to present weight of 68.045 kg. He states this was unintentional. Cardiovascular: He has history of hypertension. He reports unprovoked right leg DVT in 2018. He is presently on Xarelto. Aspirin was started during his initial [facility] stay for CVA but was discontinued during his swing bed stay due to worsening anemia. Echocardiogram 05/30/2018 showed LVEF of 60%. The E/A ratio was 1.3. There was mild mitral regurgitation and moderate tricuspid regurgitation. The interventricular septum and posterior wall thickness measurements were 0.73 and 0.70 cm respectively. Estimated RVSP was not recorded. There is no history of NH. Respiratory: He has smoked since age 16 up to 2 packs per day. He has oxygen at home which he uses only when he feels dyspneic. He denies testing for sleep apnea. GI: He reports occasional diarrhea that has not worsened in the past few months. He states he had a "partial colonoscopy" in 2018 with no worrisome pathology found. He does not recall EGD being done. He denies disorders of his liver gallbladder or exocrine pancreas : He reports being diagnosed with prostate CA 2013 and had brachytherapy. He denies other disorders of his kidney bladder or prostate Neurologic: He had left frontal area acute on chronic CVA found on his initial [facility] stay. He denies seizures or other neurologic disorders. Endocrine: He claims history of hyperlipidemia but denies diabetes or thyroid disease Hematology/oncology: He had anemia on most labs since August 2015. Anemia testing during his last swing bed stay showed iron 23, transferrin saturation 5%, transferrin 3 and 28, ferritin 33, B12 266, and folate 10.7. He was started on oral ferrous sulfate with ascorbic acid. MMA was normal. He denies other internal malignancies other than prostate CA as per above Psychiatric: He denies anxiety depression or other mental health issues Musko skeletal: He had severe multilevel DJD of the lumbar spine with multilevel spinal canal stenosis and bilateral neural foraminal narrowing on LS spine MRI done during his last swing bed stay. He saw Dr. Calvin in follow-up who reviewed the MRI findings and bilateral leg EMG/NCS. Surgery was not recommended at this time. There is no history of gout. - Constitutional Vitals: Temp Pulse Resp BP Pulse Ox 98.3 F 99 18 102/69 93 06/19/18 09:00 06/19/18 15:21 06/19/18 09:45 06/19/18 09:00 06/19/18 15:21 Exam: Gen.: He is a well-developed well-nourished male resting comfortably in bed who appears in no acute distress at present time HEENT: Head is atraumatic and normocephalic. Eyes: EOMI. There is no scleral icterus. Mouth: Mucosa is moist. Neck: Supple and nontender. There is no thyromegaly or adenopathy noted. Heart: Regular without murmurs gallops or ectopics Lungs: No wheezes or crackles are heard. Abdomen: Soft and nontender. No masses or guarding are noted. Extremities: There is no cyanosis edema or clubbing noted. Dorsalis pedis and posterior tibial pulses are trace to 1+ palpable bilaterally. Neurologic: Mental status: He is talkative and a good historian. Cranial nerves: Smile is symmetric. Forehead wrinkles bilaterally. Tongue protrudes midline. EOMI. Motor: There is no pronator drift. Cerebellar: Finger to nose is intact bilaterally. Skin: Warm and dry
[2018-06-20] MEDS: Budesonide/Formoterol 80/4.5 MDI IH SCH ×3 (01:02→22:17)
[2018-06-20] MEDS: Ascorbic Acid 500 MG TABLET PO SCH (06:23)
[2018-06-20] MEDS: Venlafaxine XR (24 HR) 150 MG CAP.ER.24H PO SCH (08:56)
[2018-06-20] MEDS: Gabapentin 400 MG CAPSULE PO SCH ×3 (08:56→20:42)
[2018-06-20] MEDS: Cholecalciferol (D-3) 1,000 UNIT TABLET PO SCH (08:56)
[2018-06-20] MEDS: Folic Acid 1 MG TABLET PO SCH (08:57)
[2018-06-20] MEDS: Zinc Sulfate 220 MG CAPSULE PO SCH (08:57)
[2018-06-20] MEDS: Nicotine 14 MG PATCH.TD24 TD SCH (08:57)
[2018-06-20] MEDS: Metoprolol XL (24 HR) Succ 50 MG TAB.ER.24H PO SCH (12:00)
[2018-06-20] MEDS: *HR* Rivaroxaban 10 MG TABLET PO SCH (17:20)
[2018-06-21] MEDS: Ascorbic Acid 500 MG TABLET PO SCH (06:25)
[2018-06-21] MEDS: Gabapentin 400 MG CAPSULE PO SCH ×3 (08:28→21:29)
[2018-06-21] MEDS: Nicotine 14 MG PATCH.TD24 TD SCH (08:28)
[2018-06-21] MEDS: Cholecalciferol (D-3) 1,000 UNIT TABLET PO SCH (08:29)
[2018-06-21] MEDS: Metoprolol XL (24 HR) Succ 50 MG TAB.ER.24H PO SCH (08:29)
[2018-06-21] MEDS: Folic Acid 1 MG TABLET PO SCH (08:29)
[2018-06-21] MEDS: Zinc Sulfate 220 MG CAPSULE PO SCH (08:29)
[2018-06-21] MEDS: Venlafaxine XR (24 HR) 150 MG CAP.ER.24H PO SCH (08:29)
[2018-06-21] MEDS: Budesonide/Formoterol 80/4.5 MDI IH SCH ×2 (10:32→23:24)
--- NOTE | 2018-06-21 14:27 | Internal Med Progress Note ---
Date of Encounter: 06/21/18 Time of Encounter: 14:20 - Assessment and plan (1) CVA (cerebral vascular accident) Current Visit: No Status: Acute Assessment and plan: June 21. Continue Xarelto and PT/OT. Anticipate discharge home tomorrow. Qualifiers: CVA mechanism: unspecified Qualified Code(s): I63.9 - Cerebral infarction, unspecified (2) Anemia Current Visit: No Status: Acute Assessment and plan: June 21. Continue ferrous sulfate with ascorbic acid. Qualifiers: Anemia type: unspecified type Qualified Code(s): D64.9 - Anemia, unspecified (3) VTE (venous thromboembolism) Current Visit: No Status: Chronic Assessment and plan: June 21. Continue Xarelto (4) Multiple falls Current Visit: No Status: Acute Assessment and plan: June 21. Continue PT/OT. (5) Lung nodule Current Visit: No Status: Acute Assessment and plan: June 21. He will have PET/CT scan as outpatient. (6) Spinal stenosis of lumbar region Current Visit: No Status: Chronic Assessment and plan: June 21. Nonsurgical treatment at present time. Follow-up with Dr. Calvin/[facility] as directed. Qualifiers: Neurogenic claudication status: unspecified Qualified Code(s): M48.061 - Spinal stenosis, lumbar region without neurogenic claudication (7) Low zinc level Current Visit: No Status: Acute Assessment and plan: June 21. Continue zinc sulfate - Subjective Interval history: June 21. He has no new complaints. He did not go on day pass yesterday. He anticipates discharge home tomorrow. - Constitutional Vitals: Temp Pulse Resp BP Pulse Ox 98.0 F 98 18 103/60 91 06/21/18 06:36 06/21/18 06:36 06/21/18 06:36 06/21/18 06:36 06/21/18 06:36 Exam: He is resting comfortably in bed and appears in no acute distress. His affect is overall cheerful. I reviewed his medications and lab results. Consult Discharge Plan - Plan [facility]: [facility]Primary Care Provider[facility] - 1 week
[2018-06-21] MEDS: *HR* Rivaroxaban 10 MG TABLET PO SCH (16:11)
[2018-06-22] MEDS: Ascorbic Acid 500 MG TABLET PO SCH (05:31)
[2018-06-22 08:45] VITALS: BP 90/57
[2018-06-22] MEDS: Venlafaxine XR (24 HR) 150 MG CAP.ER.24H PO SCH (09:05)
[2018-06-22] MEDS: Folic Acid 1 MG TABLET PO SCH (09:05)
[2018-06-22] MEDS: Gabapentin 400 MG CAPSULE PO SCH (09:05)
[2018-06-22] MEDS: Cholecalciferol (D-3) 1,000 UNIT TABLET PO SCH (09:05)
[2018-06-22] MEDS: Nicotine 14 MG PATCH.TD24 TD SCH (09:06)
[2018-06-22] MEDS: Zinc Sulfate 220 MG CAPSULE PO SCH (09:06)
[2018-06-22] MEDS: Metoprolol XL (24 HR) Succ 50 MG TAB.ER.24H PO SCH (09:11)
--- NOTE | 2018-06-22 09:16 | Discharge Summary ---
Date of Encounter: 06/22/18 Time of Encounter: 09:05 - Discharge Diagnosis (1) CVA (cerebral vascular accident) Priority: Primary Status: Acute Qualifiers: CVA mechanism: unspecified Qualified Code(s): I63.9 - Cerebral infarction, unspecified (2) Anemia Priority: Secondary Status: Acute Qualifiers: Anemia type: unspecified type Qualified Code(s): D64.9 - Anemia, unspecified (3) VTE (venous thromboembolism) Priority: Secondary Status: Chronic (4) Multiple falls Priority: Secondary Status: Acute (5) Lung nodule Priority: Secondary Status: Acute (6) Spinal stenosis of lumbar region Priority: Secondary Status: Chronic Qualifiers: Neurogenic claudication status: unspecified Qualified Code(s): M48.061 - Spinal stenosis, lumbar region without neurogenic claudication (7) Low zinc level Priority: Secondary Status: Acute Hospital course: Mr. Morejon is a 68 year old male who returned to [facility] swing bed after a June 15- stay at [facility] for esophageal obstruction from lodged food bolus. EGD was done and the obstruction was removed. Consideration for esophageal dilatation as outpatient was mentioned. His diet was changed to mechanical soft. He had been at [facility] swing bed June 05-June 15 following acute-care stay at [facility] May 30- for acute on chronic CVA. Initial orders were written by the discharging physicians at [facility]. I saw him on June 19 and performed the swing bed history and physical. He resumed previous medications. He had no additional episodes of dysphagia. Physical therapy and occupational therapy intervention was started. He felt improved and wished to be discharged home on June 22. He will follow with his PCP team at [place] within 1 week. His PCP team can arrange a PET/CT scan to further evaluate lung nodules. He will follow up with Dr. Calvin at [facility] for spinal stenosis. - Time Spent with Patient Total time spent providing and/or coordinating discharge services: - Discharge Medications Prescriptions: New Metoprolol XL (24 HR) Succ [Toprol Xl] 50 mg PO DAILY tab.er.24h Zinc Sulfate 220 mg PO DAILY capsule Ferrous Sulfate 325 mg PO DAILY@0630 tablet Ascorbic Acid [Vitamin C] 500 mg PO DAILY@0630 tablet Continued Venlafaxine XR (24 HR) [Effexor Xr] 150 mg PO DAILY Omeprazole [PriLOSEC] 20 mg PO DAILY Cholecalciferol (D-3) [Vitamin D] 2,000 unit PO DAILY Acetaminophen [Tylenol] 650 mg PO Q6HR PRN PRN Reason: Pain Gabapentin [Neurontin] 1,200 mg PO TID Folic Acid 1 mg PO DAILY hydrOXYzine HCl [Hydroxyzine HCl] 50 mg PO HS PRN PRN Reason: Sleep Tamsulosin [Flomax] 0.4 mg PO HS Lidocaine 1 appl TP QID PRN PRN Reason: Pain Rivaroxaban [Xarelto] 20 mg PO DAILY Budesonide/Formoterol 80/4.5 [Symbicort 80/4.5] 2 puff IH BIDR #1 inhaler Albuterol Sulfate [Albuterol Inhaler] 2 puff IH QID PRN PRN Reason: Shortness Of Breath Baclofen 20 mg PO TID PRN PRN Reason: Muscle Spasm Atorvastatin [Lipitor] 80 mg PO HS #30 tablet Benzonatate [Tessalon] 100 mg PO TID PRN PRN Reason: Cough Tamsulosin [Flomax] 0.4 mg PO HS capsule Nicotine Patch [Nicoderm] 14 mg TD DAILY patch.td24 Discontinued Naproxen [Naprosyn] 500 mg PO BID PRN PRN Reason: Pain Potassium Chloride [K-Tab ER] 10 meq PO DAILY Thiamine HCl [Vitamin B-1] 100 mg PO BID Metoprolol XL (24 HR) Succ [Toprol Xl] 75 mg PO DAILY #30 tab.er.24h Home Medications: Acetaminophen [Tylenol] 650 mg PO Q6HR PRN 08/13/15 [History] Cholecalciferol (D-3) [Vitamin D] 2,000 unit PO DAILY 08/13/15 [History] Gabapentin [Neurontin] 1,200 mg PO TID 08/13/15 [History] Omeprazole [PriLOSEC] 20 mg PO DAILY 08/13/15 [History] Venlafaxine XR (24 HR) [Effexor Xr] 150 mg PO DAILY 08/13/15 [History] Folic Acid 1 mg PO DAILY 02/04/18 [History] Tamsulosin [Flomax] 0.4 mg PO HS 02/04/18 [History] hydrOXYzine HCl [Hydroxyzine HCl] 50 mg PO HS PRN 02/04/18 [History] Lidocaine 1 appl TP QID PRN 04/29/18 [History] Rivaroxaban [Xarelto] 20 mg PO DAILY 04/29/18 [History] Budesonide/Formoterol 80/4.5 [Symbicort 80/4.5] 2 puff IH BIDR #1 inhaler 04/30/18 [Rx] Albuterol Sulfate [Albuterol Inhaler] 2 puff IH QID PRN 05/30/18 [History] Baclofen 20 mg PO TID PRN 05/30/18 [History] Atorvastatin [Lipitor] 80 mg PO HS #30 tablet 06/03/18 [Rx] Benzonatate [Tessalon] 100 mg PO TID PRN 06/16/18 [History] Nicotine Patch [Nicoderm] 14 mg TD DAILY patch.td24 06/17/18 [Rx] Tamsulosin [Flomax] 0.4 mg PO HS capsule 06/17/18 [Rx] Ascorbic Acid [Vitamin C] 500 mg PO DAILY@0630 tablet 06/22/18 [Rx] Ferrous Sulfate 325 mg PO DAILY@0630 tablet 06/22/18 [Rx] Metoprolol XL (24 HR) Succ [Toprol Xl] 50 mg PO DAILY tab.er.24h 06/22/18 [Rx] Zinc Sulfate 220 mg PO DAILY capsule 06/22/18 [Rx] Allergies/Adverse Reactions: Allergy/AdvReac Type Severity Reaction Status Date / Time No Known Allergies Allergy Verified 06/16/18 14:23 Date of admission: 06/18/18 18:51 Primary care physician: PCP [place] Consults: 06/18/18 17:21 Consult to Occupational Therapy [CONS] Routine Comment: evaluate, develop, and implement plan of care Reason for Consult: evaluate, develop, and implement plan of care Does patient have active BEDREST order?: No Is patient medically & hemodynamically stable?: Yes Patient assessed for mobility or mobilized this visit?: No Consult to Physical Therapy [CONS] Routine Comment: evaluate, develop, and implement plan of care Reason for Consult: evaluate, develop, and implement plan of care Does patient have active BEDREST order?: No Is patient medically & hemodynamically stable?: Yes Patient assessed for mobility or mobilized this visit?: No Consult to Family Readiness Support Assistant [CONS] Routine Reason for SW Consult: Discharge planning - Constitutional Vitals: Temp Pulse Resp BP Pulse Ox 98.4 F 93 18 90/57 96 06/22/18 08:44 06/22/18 08:44 06/22/18 08:44 06/22/18 08:44 06/22/18 08:44 - Patient Status Disposition: Home Health Service - Discharge Instructions [facility] Care Provider[facility] - 1 week - Diet and Activity Activity: as per physical therapy Diet: advance to your usual diet
[2018-06-22] MEDS: Budesonide/Formoterol 80/4.5 MDI IH SCH (09:29)
--- NOTE | 2018-06-22 13:30 | Physician Discharge Referral ---
Home Health/Hosp Referral Info Transfer to: Home Health Attending Provider: Jairon Provider in Charge Post Discharge: PCP ([facility]) - Diagnosis (1) CVA (cerebral vascular accident) Priority: Primary Status: Acute (2) Anemia Priority: Secondary Status: Acute (3) VTE (venous thromboembolism) Priority: Secondary Status: Chronic (4) Multiple falls Priority: Secondary Status: Acute (5) Lung nodule Priority: Secondary Status: Acute (6) Spinal stenosis of lumbar region Priority: Secondary Status: Chronic (7) Low zinc level Priority: Secondary Status: Acute - Respiratory Orders Oxygen / L per min (2 L per minute by nasal cannula as needed to keep sat greater than 90%.) Smoking Cessation: Smoking cessation has been advised. For more information, call the [place] Tobacco Quit Line at 6-556-RSPW-NOW. - Diet/Nutrition Diet/Nutrition Orders: Mechanical Soft - Activity Activity Orders: Walker - Services Needed Following services are medically necessary services: Nursing, Home Health Aide, Physical Therapy, Occupational Therapy - Transfer Medications Home Medications: Acetaminophen [Tylenol] 650 mg PO Q6HR PRN 08/13/15 [History] Cholecalciferol (D-3) [Vitamin D] 2,000 unit PO DAILY 08/13/15 [History] Gabapentin [Neurontin] 1,200 mg PO TID 08/13/15 [History] Omeprazole [PriLOSEC] 20 mg PO DAILY 08/13/15 [History] Venlafaxine XR (24 HR) [Effexor Xr] 150 mg PO DAILY 08/13/15 [History] Folic Acid 1 mg PO DAILY 02/04/18 [History] Tamsulosin [Flomax] 0.4 mg PO HS 02/04/18 [History] hydrOXYzine HCl [Hydroxyzine HCl] 50 mg PO HS PRN 02/04/18 [History] Lidocaine 1 appl TP QID PRN 04/29/18 [History] Rivaroxaban [Xarelto] 20 mg PO DAILY 04/29/18 [History] Budesonide/Formoterol 80/4.5 [Symbicort 80/4.5] 2 puff IH BIDR #1 inhaler 04/30/18 [Rx] Albuterol Sulfate [Albuterol Inhaler] 2 puff IH QID PRN 05/30/18 [History] Baclofen 20 mg PO TID PRN 05/30/18 [History] Atorvastatin [Lipitor] 80 mg PO HS #30 tablet 06/03/18 [Rx] Benzonatate [Tessalon] 100 mg PO TID PRN 06/16/18 [History] Nicotine Patch [Nicoderm] 14 mg TD DAILY patch.td24 06/17/18 [Rx] Tamsulosin [Flomax] 0.4 mg PO HS capsule 06/17/18 [Rx] Ascorbic Acid [Vitamin C] 500 mg PO DAILY@0630 tablet 06/22/18 [Rx] Ferrous Sulfate 325 mg PO DAILY@0630 tablet 06/22/18 [Rx] Metoprolol XL (24 HR) Succ [Toprol Xl] 50 mg PO DAILY tab.er.24h 06/22/18 [Rx] Zinc Sulfate 220 mg PO DAILY capsule 06/22/18 [Rx] Allergies/Adverse Reactions: Allergy/AdvReac Type Severity Reaction Status Date / Time No Known Allergies Allergy Verified 06/16/18 14:23 Certification: Further, I certify that my clinical findings support that this patient is homebound (i.e. absences from home require considerable and taxing effort and are for medical reasons or buddhist services or infrequently or short duration when for other reasons) because: Homebound Reason: Leaving home requires considerable and taxing effort due to condition (Impaired walking ability secondary to spinal stenosis) Attestation: My signature below is to certify that this patient is under my care and that I, or nurse practitioner, or a physician's assistant account executive working with me, has a [id number] encounter with this patient.
== END 2018-06-22 14:58 | disposition home health service (06) | DRG 57 ==
LOC: INPPIK 18:51
PROVIDERS: ADMIT Internal Medicine; ATTEND Internal Medicine